=== PATIENT | female | born 1990 | race Caucasian/White ===

== ENCOUNTER 2018-05-06 11:05 | Emergency (ER) | payer SELFPAY ==
--- NOTE | 2018-05-06 11:54 | UC ---
Throat Pain/Nasal Christiano HPI - HPI Summary HPI Summary: 28 female presents with sinus pain/pressure/congestion, chest congestion and productive cough for the last 4 days. She tells me that her symptoms started as a sore throat that have progressed to sinuses and chest congestion. Today she developed right flank pain. She has not been taking anything OTC for her symptoms. Has been feeling hot/cold, but has not taken her temperature. Denies SOB, chest pain, abdominal pain, n/v/d/c, dysuria. - History of Current Complaint Stated Complaint: SINUS CONGESTION, AND NAUSEA Time Seen by Provider: 05/06/18 11:54 Onset/Duration: Gradual Onset Severity: Mild Pain Intensity: 2 Pain Scale Used: 0-10 Numeric - Allergies/Home Medications Allergies/Adverse Reactions: Allergies Allergy/AdvReac Type Severity Reaction Status Date / Time No Known Allergies Allergy Verified 05/06/18 11:56 PMH/Surg Hx/FS Hx/Imm Hx - Additional Past Medical History Additional PMH: None - Surgical History Surgical History: None - Family History Known Family History: Positive: None - Social History Occupation: Employed Full-time Lives: With Family Alcohol Use: Occasionally Substance Use Type: None Smoking Status (MU): Light Every Day Tobacco Smoker Review of Systems Constitutional: Chills Skin: Negative Eyes: Negative ENT: Sore Throat, Nasal Discharge, Sinus Congestion, Sinus Pain/Tenderness Respiratory: Cough Cardiovascular: Negative Gastrointestinal: Negative Genitourinary: Other - Flank pain Neurovascular: Negative Neurological: Negative Psychological: Negative All Other Systems Reviewed And Are Negative: Yes Physical Exam - Summary Physical Exam Summary: GENERAL: NAD. WDWN. No pain distress. SKIN: No rashes, sores, lesions, or open wounds. HEENT: Head: AT/NC Eyes: Conjunctiva clear without inflammation or discharge. Ears: Hearing grossly normal. TMs intact, no bulging, erythema, or edema. Nose: Nasal mucosa mildly swollen and erythematous with yellow/ clear discharge. TTP maxillary and frontal sinus. Throat: Posterior oropharynx without exudates, erythema, or tonsillar enlargement. Uvula midline. NECK: Supple. Nontender. No lymphadenopathy. CHEST: Mild wheezing throughout. No r/r. No accessory muscle use. Breathing comfortably and in no distress. ABDOMEN: Mild Right flank pain. Soft. No distention or guarding. Bowel sounds present CV: RRR. Without m/r/g. Pulses intact. Cap refill <2seconds NEURO: Alert. PSYCH: Age appropriate behavior. Triage Information Reviewed: Yes Vital Signs: Vital Signs: Temp Pulse Resp BP Pulse Ox 98.8 F 78 18 123/82 100 05/06/18 11:53 05/06/18 11:53 05/06/18 11:53 05/06/18 11:53 05/06/18 11:53 Laboratory Tests 05/06/18 05/06/18 12:50 12:54 POC Urine Color Dark yellow POC Urine Clarity Clear POC Urine pH 6.0 POC Ur Specif [place] >= 1.030 POC Urine Protein 2+ A POC Ur Glucose (UA) Negative POC Urine Ketones Trace A POC Urine Blood 3+ A POC Urine Nitrite Negative POC Urine Bilirubin 1+ A POC Urine Urobilinogen 0.2 POC U Leukocyte Esteras Trace A POC Ur Test Negative Vital Signs Reviewed: Yes Throat Pain/Nasal Course/Dx - Course Course Of Treatment: CXR: IMPRESSION: No evidence for pneumonia. Negative exam. She was given a duoneb treatment in the clinical course with mild relief and s/ p with scattered wheezing, but much improved. CT: IMPRESSION: No evidence of obstructive uropathy is noted. She has never had a kidney stone in the past, but given the hematuria and proteinuria, a CT was performed which was negative for calculi. Will start her on Augmentin for suspected UTI, sinusitis, and bronchitis. - Differential Dx/Diagnosis Provider Diagnoses: UTI. Sinusitis. Bronchitis Discharge - Sign-Out/Discharge Documenting (check all that apply): Patient Departure All imaging exams completed and their final reports reviewed: Yes - Discharge Plan Condition: Stable Disposition: HOME Prescriptions: Amoxicillin/Clavulanate TAB* [Augmentin TAB 875*] 875 mg PO BID #20 tab Patient Education Materials: Urinary Tract Infection in Women (DC), Sinusitis ( ED) Forms: *Work Release Referrals: No Primary Care Phys,NOPCP [Primary Care Provider] - Additional Instructions: If you develop a fever, shortness of breath, chest pain, new or worsening symptoms - please call your PCP or go to the ED. - Billing Disposition and Condition Condition: STABLE Disposition: Home
[2018-05-06 11:56] VITALS: BP 123/82
[2018-05-06] MEDS ORDERED: Albuterol/Ipratropium NEB.SOL* Albuterol 2.5 MG/Ipratropium 0.5 MG 3 ML INH ONE (12:03)
--- NOTE | 2018-05-06 12:35 | RAD ---
INDICATION: Cough, sinus congestion, nausea. History of tobacco use. COMPARISON: No relevant prior exams available on the [facility] PACS for comparison. TECHNIQUE: PA and routine lateral views of the chest were obtained. REPORT: No focal pulmonary lesion, compelling alveolar consolidation, pleural effusion, pneumothorax. The heart, pulmonary vasculature, and mediastinal contours are unremarkable. Unremarkable soft tissue contours and osseous structures accounting for large body habitus. IMPRESSION: #. No evidence for pneumonia. Negative exam.
--- NOTE | 2018-05-06 13:35 | RAD ---
Indication: Hematuria, right-sided abdominal pain. CT of the abdomen and pelvis was performed without oral or IV contrast administration. Lung bases demonstrate no pleural fluid, nodules or masses. Heart is of normal size without evidence of pericardial effusion. Liver is normal in size. No focal lesions or intrahepatic ductal dilatation is noted. Patient is status post cholecystectomy. The pancreas demonstrates no mass or pancreatic duct dilatation. The spleen is mildly enlarged. No dilated loops of bowel are noted. No adrenal masses are noted. The kidneys demonstrates no hydronephrosis of either kidney. No retroperitoneal adenopathy is noted. Aorta and inferior vena cava are unremarkable. CT of the pelvis demonstrates no pelvic adenopathy. The uterus and ovaries are grossly unremarkable. No free fluid is identified. No hernias are noted. Bony structures are grossly unremarkable. IMPRESSION: No evidence of obstructive uropathy is noted.
== END 2018-05-06 13:53 | disposition home or self-care (01) ==
LOC: UCEAST 11:05
DX: F17.210 Nicotine dependence, cigarettes, uncomplicated (principal); N39.0 Urinary tract infection, site not specified; J32.9 Chronic sinusitis, unspecified; J40 Bronchitis, not specified as acute or chronic
CPT/HCPCS: 71046; 74176; 81003; 84702; 87086; 99202; A9270-GY; G0463

== ENCOUNTER 2018-05-10 10:29 | Emergency (ER) | payer SELFPAY ==
[2018-05-10 11:04] VITALS: BP 112/70
[2018-05-10] MEDS ORDERED: predniSONE TAB* 20 MG PO ONE (11:13)
[2018-05-10] MEDS ORDERED: Albuterol/Ipratropium NEB.SOL* Albuterol 2.5 MG/Ipratropium 0.5 MG 3 ML INH ONE (11:13)
--- NOTE | 2018-05-10 11:54 | UC ---
Respiratory Complaint HPI - HPI Summary HPI Summary: Patient was treated for URI and UTI, she never had UTI symtpoms, culture was negative, with augmentin last week, has had no relief from coughing and SOB SHe now has some low rib pain and back muscles are sore, Denies fever or chills , former smoker - History of Current Complaint Chief Complaint: UCRespiratory Stated Complaint: CHEST CONGESTION,UPPER RESPITORY,COUGH Hx Obtained From: Patient Hx Last Menstrual Period: 05/06/18 Onset/Duration: Gradual Onset, Lasting Weeks Timing: Constant Severity Initially: Mild Severity Currently: Moderate Pain Intensity: 7 Character: Cough: Nonproductive Aggravating Factors: Exertion, Deep Breaths, Recumbent Position Alleviating Factors: Nothing Associated Signs And Symptoms: Positive: Wheezing, URI - Allergies/Home Medications Allergies/Adverse Reactions: Allergies Allergy/AdvReac Type Severity Reaction Status Date / Time No Known Allergies Allergy Verified 05/10/18 10:49 Home Medications: Home Medications Dextromethorphan Hb/Doxylamine [Nighttime Cough Liquid] 10 ml PO PRN 05/10/18 [ History] Levothyroxine TAB* [Synthroid TAB*] 100 mcg PO DAILY 05/10/18 [History Confirmed 05/10/18] PMH/Surg Hx/FS Hx/Imm Hx Previously Healthy: Yes - Surgical History Surgical History: Yes Surgery Procedure, Year, and Place: GALL BLADDER 2012. TONSILLECTOM. E-SURE - Family History Known Family History: Positive: None Negative: Cardiac Disease, Hypertension - Social History Alcohol Use: Occasionally Substance Use Type: None Smoking Status (MU): Former Smoker Type: Cigarettes Amount Used/How Often: 1/2 PPD When Did the Patient Quit Smoking/Using Tobacco: 10 DAYS Review of Systems Constitutional: Chills, Fatigue Skin: Negative Eyes: Negative ENT: Negative Respiratory: Shortness Of Breath, Cough Cardiovascular: Negative Gastrointestinal: Negative Genitourinary: Negative Motor: Negative Neurovascular: Negative Musculoskeletal: Myalgia Neurological: Negative Psychological: Negative Is Patient Immunocompromised?: No All Other Systems Reviewed And Are Negative: Yes Physical Exam Triage Information Reviewed: Yes Appearance: Ill-Appearing, Pain Distress, Obese Vital Signs: Initial Vital Signs Temp 98.9 F 05/10/18 10:51 Pulse 80 05/10/18 10:51 Resp 24 05/10/18 10:51 BP 112/70 05/10/18 10:51 Pulse Ox 95 05/10/18 10:51 Vital Signs Reviewed: Yes Eye Exam: Normal ENT Exam: Normal Dental Exam: Normal Neck exam: Normal Neck: Positive: Supple, Nontender, No Lymphadenopathy Respiratory: Positive: No accessory muscle use, Respiratory distress - mild, Wheezing, Expiration, Inspiration, Other: - lower chest and back tenderness Cardiovascular Exam: Normal Cardiovascular: Positive: RRR, No Murmur Abdominal Exam: Normal Musculoskeletal Exam: Normal Neurological Exam: Normal Psychological Exam: Normal Skin Exam: Normal UC Diagnostic Evaluation - Laboratory O2 Sat by Pulse Oximetry: 95 Respiratory Course/Dx - Course Course Of Treatment: hx obtained, exam performed ,meds reviewed, treated for bronchitis. - Differential Dx/Diagnosis Differential Diagnosis/HQI/PQRI: Bronchitis, Lower Resp Infection, Sinusitis Provider Diagnoses: Acute bronchitis Discharge - Sign-Out/Discharge Documenting (check all that apply): Patient Departure All imaging exams completed and their final reports reviewed: Yes - Discharge Plan Condition: Stable Disposition: HOME Patient Education Materials: Acute Bronchitis (ED) Referrals: No Primary Care Phys,NOPCP [Primary Care Provider] - Additional Instructions: 1. Take the medication as prescribed. 2. Increase fluid intake 3. REst!!! 4. Follow up as needed. - Billing Disposition and Condition Condition: STABLE Disposition: Home
== END 2018-05-10 12:02 | disposition home or self-care (01) ==
LOC: UCCORT 10:29
DX: J20.9 Acute bronchitis, unspecified (principal); Z87.891 Personal history of nicotine dependence
CPT/HCPCS: 99212; A9270-GY; G0463; J7512